=== PATIENT | male | born 1965 | race Caucasian/White ===

== ENCOUNTER 2024-03-28 13:47 | Inpatient (IN) | payer MEDICAID, OTHER ==
[~2024-03-28] VITALS: Ht 175.3 cm; Wt 72.3 kg
[2024-03-28 16:08] LABS: BASOPHILS % 0.3 % (0.0-2.0); EOSINOPHILS % 0.4 % (0.0-5.0); HEMATOCRIT. 41.7 % (42.0-52.0); HEMOGLOBIN. 13.4 g/dL (14.0-18.0); LYMPHOCYTES % 11.8 % (20.0-50.0); MEAN CORPUSCULAR HEMOGLOBIN 27.7 pg (28.0-32.0); MEAN CORPUSCULAR VOLUME 86.5 fL (80.0-94.0); MEAN PLATELET VOLUME 8.5 fl (7.4-10.4); MONOCYTES % 5.7 % (2.0-8.0); NEUTROPHILS % 81.8 % (40.0-76.0); PLATELET 228 x1000/uL (130-400); RED BLOOD CELL COUNT 4.82 mill/uL (4.7-6.1); RED CELL DISTRIBUTION WIDTH 13.8 % (11.6-14.6); WHITE BLOOD COUNT 13.9 x1000/uL (4.5-11.0)
[2024-03-28] MEDS: MORPHINE SULFATE 4 MG/ML INJ (FOR IV/IM USE) IV ONE (16:15)
[2024-03-28] MEDS: ONDANSETRON HCL 4MG/2ML INJ IV ONE (16:15)
[2024-03-28] MEDS: ASPIRIN 325MG EC TABLET PO ONE (16:15)
[2024-03-28 16:16] LABS: INR 0.9; PROTHROMBIN TIME 10.5 sec (9.6-11.0)
[2024-03-28 16:18] LABS: CHLORIDE 101 mEq/L (98-107); POTASSIUM 4.5 mEq/L (3.5-5.1); SODIUM 135 mEq/L (136-145)
[2024-03-28 16:20] LABS: CALCIUM 8.9 mg/dL (8.7-10.4); CARBON DIOXIDE 24 mEq/L (21-32)
[2024-03-28 16:24] LABS: CREATININE 1.1 mg/dL (0.6-1.3)
[2024-03-28 16:25] LABS: GLUCOSE 340 mg/dL (70-105); UREA NITROGEN BLOOD 11 mg/dL (9-23)
[2024-03-28 16:47] LABS: TROPONIN I HIGH SENSITIVITY 2292 ng/L (3.0-53)
[2024-03-28] MEDS ORDERED: DEXTROSE 50% WATER 50ML SYRINGE IV PRN (18:30)
[2024-03-28 18:41] LABS: TROPONIN I HIGH SENSITIVITY 11298 ng/L (3.0-53)
[2024-03-28] MEDS: BLOOD SUGAR DIAGNOSTIC STRIP TEST SCH (21:47)
[2024-03-28 22:23] LABS: TROPONIN I HIGH SENSITIVITY 40478 ng/L (3.0-53)
[2024-03-28] MEDS: INSULIN LISPRO 100 UNITS/ML SUBCUT SCH (22:32)
[2024-03-28] MEDS: INSULIN GLARGINE 100 UNITS/ML SUBCUT SCH (22:35)
[2024-03-28] MEDS: ENOXAPARIN 30MG/0.3ML SYR SUBCUT SCH (22:37)
[2024-03-28] MEDS ORDERED: HEPARIN 60 UNITS/KG BOLUS IV SCH (22:45)
[2024-03-28] MEDS ORDERED: HEPARIN BOLUS PRN aPTT <30 IV ×2 (22:45→23:41)
[2024-03-28] MEDS ORDERED: HEPARIN BOLUS PRN aPTT 30-44 IV ×2 (22:45→23:41)
[2024-03-28] MEDS: HEPARIN 60 UNITS/KG BOLUS IV NR (23:56)
[2024-03-28] MEDS: HEPARIN 25,000 UNITS PREMIX 250 ML IV SCH (23:58)
[2024-03-29] MEDS: ONDANSETRON HCL 4MG/2ML INJ IV PRN (06:21)
[2024-03-29] MEDS: ASPIRIN 81MG TABLET PO SCH (08:59)
[2024-03-29] MEDS ORDERED: VERAPAMIL HCL 2.5 MG/1 ML 2ML VIAL IV ONE (09:55)
[2024-03-29] MEDS ORDERED: LIDOCAINE HCL 1% 20ML VIAL ONE (09:55)
[2024-03-29] MEDS ORDERED: HEPARIN 1000 UNITS/ML 10ML ONE ×2 (09:55→10:48)
[2024-03-29] MEDS ORDERED: FENTANYL CITRATE/PF 50MCG/ML 2ML VIAL ONE (09:55)
[2024-03-29] MEDS ORDERED: DIPHENHYDRAMINE 50MG/ML VIAL ONE (09:56)
[2024-03-29] MEDS ORDERED: MIDAZOLAM HCL 2 MG/2 ML VIAL ONE (09:56)
[2024-03-29] MEDS ORDERED: IODIXANOL 320MG/ML 100 ML BOTTLE IV ONE (10:38)
[2024-03-29] MEDS ORDERED: ASPIRIN 325MG TABLET ONE (11:02)
[2024-03-29] MEDS ORDERED: CLOPIDOGREL 75MG TABLET ONE (11:02)
[2024-03-29] MEDS ORDERED: ATROPINE SULFATE 1MG/10ML SYR IV PRN (11:30)
[2024-03-29] MEDS ORDERED: SODIUM CHLORIDE 0.45% 500 ML IV SCH (11:30)
[2024-03-29 11:35] VITALS: BP 112/68; PULSE 103; RESP 33; TEMP 36.8
[2024-03-29] MEDS ORDERED: ONDANSETRON HCL 4MG/2ML INJ ONE (11:36)
[2024-03-29] MEDS ORDERED: FUROSEMIDE 40MG/4ML VIAL ONE (11:42)
[2024-03-29] MEDS: FUROSEMIDE 100MG/10ML VIAL IVP NR ×2 (11:58→16:49)
[2024-03-29 12:00] VITALS: BP 102/70; PULSE 94; RESP 18; TEMP 36.7; O2SAT 96
[2024-03-29] MEDS ORDERED: IPRATROPIUM/ALBUTEROL 0.5-3(2.5)MG/3ML NEB HHN SCH (12:00)
[2024-03-29 12:02] VITALS: RESP 35; RESP 44
[2024-03-29 12:32] LABS: BG BASE EXCESS -1.8 mmol/L (-2.0-3.0); BG CARBOXYHEMOGLOBIN 0.7 % (0.5-1.5); BG DEOXYHEMOGLOBIN 3.4 % (0.0-5.0); BG FRACTION INSPIRED OXYGEN 60; BG HCO3 ACT 21.4 mmol/L (21.0-28.0); BG OXYGEN SATURATION 96.6 % (94.0-98.0); BG OXYHEMOGLOBIN 95.9 % (94.0-98.0); BG PCO2 32.6 mmHg (35.0-48.0); BG PH 7.435 (7.350-7.450); BG PO2 85.2 mmHg (83.0-108.0); BG SAMPLE SITE RIGHT BRACHIAL; BG TOTAL HEMOGLOBIN 15.9 g/dL (13.5-17.5); BG VENT MODE MASK - BIPAP
[2024-03-29 12:59] VITALS: PULSE 88; RESP 30; O2SAT 98
[2024-03-29] MEDS: IPRATROPIUM/ALBUTEROL 0.5-3(2.5)MG/3ML NEB HHN PRN (12:59)
[2024-03-29] MEDS: INFLUENZA VACCINE 05/PF 0.5 ML SYRINGE IM ONE (13:15)
[2024-03-29] MEDS: PNEUMOCOCCAL 20-VAL CONJ-DIP CRM 0.5ML IM ONE (13:15)
[2024-03-29 16:00] VITALS: BP 119/69; PULSE 90; RESP 20; TEMP 36.8; O2SAT 98
[2024-03-29 16:34] LABS: CARBON DIOXIDE 22 mEq/L (21-32); CHLORIDE 99 mEq/L (98-107); POTASSIUM 3.9 mEq/L (3.5-5.1); SODIUM 131 mEq/L (136-145)
[2024-03-29 16:35] LABS: CALCIUM 8.8 mg/dL (8.7-10.4)
[2024-03-29 16:40] LABS: CREATININE 1.2 mg/dL (0.6-1.3); GLUCOSE 331 mg/dL (70-105); UREA NITROGEN BLOOD 13 mg/dL (9-23)
[2024-03-29 16:58] LABS: HEPATITIS B SURFACE ANTIGEN NEGATIVE (Negative)
[2024-03-29 17:18] LABS: HEPATITIS C AB NON REACTIVE (Neg) (Negative)
[2024-03-29 19:28] VITALS: BP 100/57; PULSE 87; RESP 19; TEMP 36.7; O2SAT 95
[2024-03-30] VITALS (7 sets, daily range): BP systolic 101–122; BP diastolic 62–81; PULSE 80–93; RESP 23–40; TEMP 36.6–39.1; O2SAT 92–98
[2024-03-30 06:33] LABS: BASOPHILS % 0.5 % (0.0-2.0); HEMATOCRIT. 42.3 % (42.0-52.0); LYMPHOCYTES % 15.5 % (20.0-50.0); MEAN CORPUSCULAR HEMOGLOBIN 28.7 pg (28.0-32.0); MEAN CORPUSCULAR HGB CONC 33.1 g/dL (31.0-37.0); MEAN CORPUSCULAR VOLUME 86.6 fL (80.0-94.0); MEAN PLATELET VOLUME 8.8 fl (7.4-10.4); MONOCYTES % 11.2 % (2.0-8.0); NEUTROPHILS % 72.8 % (40.0-76.0); PLATELET 217 x1000/uL (130-400); RED BLOOD CELL COUNT 4.88 mill/uL (4.7-6.1); RED CELL DISTRIBUTION WIDTH 13.9 % (11.6-14.6); WHITE BLOOD COUNT 15.3 x1000/uL (4.5-11.0)
[2024-03-30 06:43] LABS: POTASSIUM 4.3 mEq/L (3.5-5.1)
[2024-03-30 06:44] LABS: CALCIUM 9.1 mg/dL (8.7-10.4)
[2024-03-30 06:49] LABS: CREATININE 1.3 mg/dL (0.6-1.3)
[2024-03-30] MEDS: CLOPIDOGREL 75MG TABLET PO SCH (09:42)
[2024-03-30] MEDS: FUROSEMIDE 40MG/4ML VIAL IVP SCH (09:42)
[2024-03-30] MEDS: GUAIFENESIN-DM 200MG-20MG/10ML UDC PO PRN (10:12)
[2024-03-30] MEDS: ACETAMINOPHEN 325MG TABLET PO PRN (10:13)
[2024-03-30 11:44] LABS: INFLUENZA TYPE A Presumptive Negative (Pres. Neg.); INFLUENZA TYPE B Presumptive Negative (Pres. Neg.)
[2024-03-30] MEDS: ATORVASTATIN CALCIUM 40MG TABLET PO SCH (22:18)
[2024-03-31] VITALS (7 sets, daily range): BP systolic 75–133; BP diastolic 33–78; PULSE 81–95; RESP 18–29; TEMP 36.9–37.8; O2SAT 90–95
[2024-03-31 07:47] LABS: BASOPHILS % 0.2 % (0.0-2.0); EOSINOPHILS % 0.1 % (0.0-5.0); HEMATOCRIT. 39.1 % (42.0-52.0); HEMOGLOBIN. 12.9 g/dL (14.0-18.0); MEAN CORPUSCULAR HEMOGLOBIN 28.3 pg (28.0-32.0); MEAN CORPUSCULAR VOLUME 85.7 fL (80.0-94.0); MEAN PLATELET VOLUME 8.7 fl (7.4-10.4); MONOCYTES % 9.8 % (2.0-8.0); NEUTROPHILS % 74.9 % (40.0-76.0); PLATELET 206 x1000/uL (130-400); RED BLOOD CELL COUNT 4.57 mill/uL (4.7-6.1); RED CELL DISTRIBUTION WIDTH 13.8 % (11.6-14.6); WHITE BLOOD COUNT 15.3 x1000/uL (4.5-11.0)
[2024-03-31 08:06] LABS: CHLORIDE 98 mEq/L (98-107); POTASSIUM 3.7 mEq/L (3.5-5.1); SODIUM 136 mEq/L (136-145)
[2024-03-31 08:07] LABS: CARBON DIOXIDE 28 mEq/L (21-32)
[2024-03-31 08:08] LABS: CALCIUM 8.7 mg/dL (8.7-10.4)
[2024-03-31 08:12] LABS: CREATININE 1.1 mg/dL (0.6-1.3); GLUCOSE 169 mg/dL (70-105)
[2024-03-31 08:13] LABS: UREA NITROGEN BLOOD 18 mg/dL (9-23)
[2024-03-31] MEDS: LEVOFLOXACIN 250MG TABLET PO SCH (13:26)
[2024-04-01] VITALS: BP 129/76; PULSE 95; RESP 17; TEMP 37; O2SAT 94
[2024-04-01 04:00] VITALS: BP 100/51; PULSE 88; RESP 20; TEMP 36.8; O2SAT 92
[2024-04-01 08:00] VITALS: BP 122/64; PULSE 89; RESP 17; TEMP 37.1; O2SAT 94
[2024-04-01] MEDS ORDERED: LIP40 PO (09:29)
[2024-04-01] MEDS ORDERED: LANTUSUD SUBCUT (09:29)
[2024-04-01] MEDS ORDERED: LEVO750T68 MT (09:29)
[2024-04-01] MEDS ORDERED: TUSSL MT (09:29)
[2024-04-01] MEDS ORDERED: FURO-151 MT (09:29)
[2024-04-01] MEDS ORDERED: CLOP-31 MT (09:29)
[2024-04-01] MEDS ORDERED: ASPI-1406 MT (09:29)
[2024-04-01 11:32] VITALS: BP 122/64; PULSE 89; TEMP 98.8; O2SAT 94
[2024-04-01 12:00] VITALS: BP 128/67; PULSE 82; RESP 23; TEMP 36.9; O2SAT 94
== END 2024-04-01 15:45 | disposition home or self-care (01) | DRG 174 ==
LOC: ER 13:52 → EDBEDREQ 15:05 → MICUSO 17:30 → EDBEDREQ 17:35 → EDBEDREQSVC 22:42 → 3WST 03-29 11:41
PROVIDERS: ADMIT Internal Medicine; ATTEND Internal Medicine
PROC: 4A023N7 Measurement of Cardiac Sampling and Pressure, Left Heart, Percutaneous Approach (ICD-10-PCS; principal; 2024-03-29)
PROC: 027034Z Dilation of Coronary Artery, One Artery with Drug-eluting Intraluminal Device, Percutaneous Approach (ICD-10-PCS; 2024-03-29)
PROC: B211YZZ Fluoroscopy of Multiple Coronary Arteries using Other Contrast (ICD-10-PCS; 2024-03-29)
PROC: B41FYZZ Fluoroscopy of Right Lower Extremity Arteries using Other Contrast (ICD-10-PCS; 2024-03-29)
PROC: B41CYZZ Fluoroscopy of Pelvic Arteries using Other Contrast (ICD-10-PCS; 2024-03-29)
PROC: B213YZZ Fluoroscopy of Multiple Coronary Artery Bypass Grafts using Other Contrast (ICD-10-PCS; 2024-03-29)
PROC: B240ZZ3 Ultrasonography of Single Coronary Artery, Intravascular (ICD-10-PCS; 2024-03-29)
DX: I21.4 Non-ST elevation (NSTEMI) myocardial infarction (principal); J96.01 Acute respiratory failure with hypoxia; I50.23 Acute on chronic systolic (congestive) heart failure; I42.9 Cardiomyopathy, unspecified; J18.9 Pneumonia, unspecified organism; I11.0 Hypertensive heart disease with heart failure; I25.10 Atherosclerotic heart disease of native coronary artery without angina pectoris; E11.65 Type 2 diabetes mellitus with hyperglycemia; D72.829 Elevated white blood cell count, unspecified; E78.5 Hyperlipidemia, unspecified; F17.210 Nicotine dependence, cigarettes, uncomplicated; Z95.1 Presence of aortocoronary bypass graft; Z79.84 Long term (current) use of oral hypoglycemic drugs; I25.2 Old myocardial infarction; Z79.82 Long term (current) use of aspirin
CPT/HCPCS: 36415; 36600; 71045; 80048; 82375; 82805; 82962; 83605; 83880; 84145; 84443; 84484; 85025; 85347; 86705; 87340; 87426; 87804; 92928; 93005; 93306; 93461; 94640; 94660; 99285; A4606; C1725; C1753; C1769; C1874; C1887; C1893; J1200; J1644; J1650; J1815; J1940; J2250; J2270; J2405; J3010; J3490; Q9967